=== PATIENT | female | born 1980 | race Caucasian/White ===

== ENCOUNTER 2024-11-25 09:09 | Emergency (ER) | payer SELFPAY ==
[~2024-11-25] VITALS: Ht 162.6 cm; Wt 76.2 kg
[2024-11-25 09:09] VITALS: BP 137/96; PULSE 80; RESP 18; TEMP 98.4; O2SAT 95
[2024-11-25] MEDS ORDERED: AUGMENTIN 875MG ONE (09:25)
[2024-11-25] MEDS ORDERED: DECADRON ONE (09:25)
[2024-11-25] MEDS ORDERED: TORADOL ONE (09:25)
[2024-11-25] MEDS: AUGMENTIN 875MG PO STA (09:31)
[2024-11-25] MEDS: TORADOL IM STA (09:31)
[2024-11-25] MEDS: DECADRON IM ONE (09:31)
[2024-11-25 09:42] VITALS: BP 145/92; PULSE 75; RESP 18; TEMP 98.4; O2SAT 95
== END 2024-11-25 09:38 | disposition home or self-care (01) ==
LOC: ER 09:09
DX: J02.9 Acute pharyngitis, unspecified (principal); I10 Essential (primary) hypertension; F31.9 Bipolar disorder, unspecified; Z90.49 Acquired absence of other specified parts of digestive tract; Z90.710 Acquired absence of both cervix and uterus; Z88.2 Allergy status to sulfonamides
CPT/HCPCS: 99284; 96372; J1885; J1100